=== PATIENT | female | born 1975 | race Caucasian/White ===

== ENCOUNTER → 2016-12-09 | Outpatient (CLI) | payer OTHER ==
[2016-12-09 11:30] LABS: HEMOGLOBIN 14.4 gm/dl (12.3-15.3); RED BLOOD COUNT 4.73 M/UL (4.00-5.10); WHITE BLOOD COUNT 7.1 K/UL (4.5-11.0)
[2016-12-09 11:59] LABS: BUN/CREATININE RATIO 20 (0-10)
== END ==
LOC: LAB 10:25
PROVIDERS: Nurse Practitioner Family
DX: I10 Essential (primary) hypertension (principal); R73.9 Hyperglycemia, unspecified; E78.2 Mixed hyperlipidemia
CPT/HCPCS: 36415; 80053; 80061; 83036; 85027

== ENCOUNTER 2021-04-26 16:27 | Emergency (ER) | payer OTHER ==
[~2021-04-26] VITALS: Ht 177.8 cm; Wt 122.5 kg
[2021-04-26 17:19] LABS: BORDETELLA PARAPERTUSSIS Not Detected (Not Detectd); BORDETELLA PERTUSSIS Not Detected (Not Detectd); CHLAMYDIA PNEUMONIAE Not Detected (Not Detectd); CORONAVIRUS HKU1 Not Detected (Not Detectd); CORONAVIRUS NL63 Not Detected (Not Detectd); CORONAVIRUS OC43 Not Detected (Not Detectd); CORONOAVIRUS 229E Not Detected (Not Detectd); HUMAN METAPNEUMOVIRUS Not Detected (Not Detectd); HUMAN RHINOVIRUS/ENTEROVIRUS Not Detected (Not Detectd); INFLUENZA A Not Detected (Not Detectd); INFLUENZA B Not Detected (Not Detectd); MYCOPLASMA PNEUMONIAE Not Detected (Not Detectd); PARAINFLUENZA VIRUS 1 Not Detected (Not Detectd); PARAINFLUENZA VIRUS 2 Not Detected (Not Detectd); PARAINFLUENZA VIRUS 3 Not Detected (Not Detectd); PARAINFLUENZA VIRUS 4 Not Detected (Not Detectd); RESPIRATORY SYNCYTIAL VIRUS Not Detected (Not Detectd)
[2021-04-26 17:29] LABS: HEMOGLOBIN 15.7 gm/dl (12.3-15.3); RED BLOOD COUNT 5.02 M/UL (4.00-5.10); WHITE BLOOD COUNT 3.8 K/UL (4.5-11.0)
[2021-04-26 17:50] LABS: BUN/CREATININE RATIO 17 (0-10)
[2021-04-26 18:13] LABS: SARS-CoV-2 DETECTED (Not Detectd)
== END 2021-04-26 21:00 | disposition home or self-care (01) ==
LOC: ER1 16:27
PROVIDERS: Preventive Medicine Occupational Medicine
DX: U07.1 COVID-19 (principal); Z23 Encounter for immunization; I10 Essential (primary) hypertension
CPT/HCPCS: 71045; 80053; 85025; 87633; 96374; 99285; J2405; M0243

== ENCOUNTER 2021-08-29 11:05 | Emergency (ER) | payer OTHER ==
[2021-08-29 12:06] LABS: HEMOGLOBIN 13.6 gm/dl (12.3-15.3); RED BLOOD COUNT 4.52 M/UL (4.00-5.10); WHITE BLOOD COUNT 9.6 K/UL (4.5-11.0)
[2021-08-29 12:56] LABS: BUN/CREATININE RATIO 16 (0-10)
[2021-08-29] MEDS ORDERED: TORADOL 10 MG T10 MG PO (17:17)
[2021-08-29] MEDS ORDERED: CEPHALEXIN500 M1 PO (17:17)
[2021-08-29] MEDS ORDERED: CYCLOBENZAPRINE10 MG PO (17:17)
== END 2021-08-29 17:22 | disposition home or self-care (01) ==
LOC: ER1 11:05
PROVIDERS: Physician Assistant
DX: R07.89 Other chest pain (principal); N39.0 Urinary tract infection, site not specified; M54.50 Low back pain, unspecified; Z20.822 Contact with and (suspected) exposure to COVID-19; G89.29 Other chronic pain; G43.909 Migraine, unspecified, not intractable, without status migrainosus; E78.5 Hyperlipidemia, unspecified; I10 Essential (primary) hypertension; J44.9 Chronic obstructive pulmonary disease, unspecified; F17.200 Nicotine dependence, unspecified, uncomplicated; Z90.49 Acquired absence of other specified parts of digestive tract; Z90.710 Acquired absence of both cervix and uterus; Z88.6 Allergy status to analgesic agent; Z88.5 Allergy status to narcotic agent
CPT/HCPCS: 0240U; 71045; 80053; 81001; 82550; 82553; 83874; 84484; 85025; 85379; 87086; 93005; 96374; 96375; 99285; J1200; J1885; J2765

== ENCOUNTER → 2021-09-17 | Outpatient (CLI) | payer OTHER ==
[~2021-09-17] MED LIST: CEPHALEXIN500 M1 PO; CYCLOBENZAPRINE10 MG PO; TORADOL 10 MG T10 MG PO
== END ==
LOC: HEART 5 13:30
DX: R06.02 Shortness of breath (principal); I51.7 Cardiomegaly
CPT/HCPCS: 93306

== ENCOUNTER → 2021-09-20 | Outpatient (CLI) | payer OTHER | LOC: KOH-I 16:43 | DX: M51.16 Intervertebral disc disorders with radiculopathy, lumbar region (principal); M47.814 Spondylosis without myelopathy or radiculopathy, thoracic region | CPT/HCPCS: 72070; 72100 ==

== ENCOUNTER → 2021-10-22 | Outpatient (CLI) | payer OTHER | LOC: HEART 5 13:26 | DX: R06.02 Shortness of breath (principal) | CPT/HCPCS: 94060; 94729 ==

== ENCOUNTER → 2021-10-28 | Outpatient (CLI) | payer OTHER | LOC: SLEEP 14:35 | DX: Z87.891 Personal history of nicotine dependence (principal); G47.61 Periodic limb movement disorder | CPT/HCPCS: 95810 ==